=== PATIENT | male | born 1955 | race African-American/Black ===

== ENCOUNTER → 2016-10-10 | Outpatient (CLI) | payer OTHER, BC ==
[2016-03-26 14:31] VITALS: BP 125/79
[~2016-10-10] MED LIST: ABAC1TAB13 PO; HYDR-971 PO; PRED50TA PO; SULF1TAB24 PO; VALA1000 PO
--- NOTE | 2016-10-10 15:20 | RAD ---
Lumbar spine, 3 views, 10/10/2016: History: Back pain, disability determination The lumbar vertebral heights are well-maintained. There is a slight lumbar scoliosis. There are mild scattered marginal spurs. No fracture or dislocation is identified. Aortoiliac calcific plaquing is present. IMPRESSION: 1. Mild degenerative change. 2. No acute abnormality is detected.
== END | disposition home or self-care (01) ==
LOC: DXRAD 09:33
PROVIDERS: ATTEND Surgery
DX: Z02.71 Encounter for disability determination (principal)
CPT/HCPCS: 72100

== ENCOUNTER 2017-02-05 10:19 | Emergency (ER) | payer BC, OTHER ==
[~2017-02-05] VITALS: Ht 193 cm; Wt 88.5 kg
--- NOTE | 2017-02-05 10:55 | PHYS DOC ---
General Chief Complaint: SHOULDER INJURY Stated Complaint: SHOULDER PAIN Time Seen by MD: 10:30 Problems: History of Present Illness Allergies: Coded Allergies: No Known Drug Allergies (Unverified , 03/26/16) Past Medical History Medical History: other (Hodgkins Lymphoma (remission/chemo), HIV (follows ID [facility] ), BPH, TIA, COPD, HTN) Surgical History: other (LN bx, tonsil) Social History Smoker: cigarettes Alcohol: heavy (can of beer daily) Drugs: cocaine ("occasionally") Review of Systems Constitutional: denies chills, denies fever Respiratory: denies cough, denies shortness of breath Cardiovascular: denies chest pain, denies palpitations Gastrointestinal: denies nausea, denies vomiting Musculoskeletal: see HPI Psychiatric/Neurological: denies numbness, denies paresthesia, denies weakness Physical Exam General Appearance: no apparent distress, thin HEENT: PERRL/EOMI Neck: non-tender, supple Cardiovascular/Respiratory: normal peripheral pulses, no respiratory distress Shoulder: soft tissue tenderness (R shoulder posterolateral TTP limited ROM abduct/ext, no bony TTP/swell/ecchy) Neurologic/Tendon: normal sensation, normal motor functions, responds to pain Psychiatric: alert, oriented x 3 Skin: normal color, warm/dry Orders, Labs, Meds PATIENT: MAVIS FERNÁNDEZ ACCOUNT: [id number] : 1955 LOCATION: ER AGE: 61 SEX: M EXAM STATUS: REG ER ORD. PHYSICIAN: ISRAEL GLEZ DO REASON: R shoulder pain PROCEDURE: SHOULDER 2+V RIGHT Indication: Fall with continued right shoulder pain. Time of exam 11:01 AM Glenohumeral and acromial clavicular alignment are normal. There are coarse calcifications noted adjacent to the greater tuberosity consistent with calcific tendinitis of the rotator cuff. No fractures are seen. Impression: 1. Calcific tendinitis of the rotator cuff. DICTATED AND SIGNED BY: KIERA MANRIQUEZ MD DATE: 02/05/17 1111 CC: PCP,NO; ISRAEL GLEZ DO ~ I discussed substance abuse and need to discontinue the need to seek inpatient treatment. I discussed need for MRI and orthopedics evaluation. Discussed chronic pain and need to follow up with PCP. Patient expressed agreement and understanding with the treatment plan. Departure Time of Disposition: 11:26 Disposition: 01 HOME, SELF-CARE Diagnosis: Acute on Chronic Pain, Calcific Tendinitis R Rot C Condition: GOOD Patient Instructions: RICE - Routine Care for Injuries, [id number], Shoulder Exercises, Generic, SportsMed Additional Instructions: JESSICA, see handout. Discontinue substance abuse, seeking medical assistance if necessary. Wear the sling on the right shoulder as needed for symptom control. Prescription: Naprosyn, [place] 5 mg quantity 10 for breakthrough pain As discussed, chronic pain issues must be addressed with your PCP. Follow up with your doctor for further imaging/specialty referrals as needed, call today to schedule. Return to ED with new or changing symptoms. ISRAEL GLEZ DO Feb 05, 2017 10:55
--- NOTE | 2017-02-05 11:14 | RAD ---
Indication: Fall with continued right shoulder pain. Time of exam 11:01 AM Glenohumeral and acromial clavicular alignment are normal. There are coarse calcifications noted adjacent to the greater tuberosity consistent with calcific tendinitis of the rotator cuff. No fractures are seen. Impression: 1. Calcific tendinitis of the rotator cuff.
[2017-02-05] MEDS ORDERED: NAPR500T PO (11:25)
[2017-02-05] MEDS ORDERED: HYDR-971 PO (11:25)
[2017-02-05 11:41] VITALS: BP 124/81
== END 2017-02-05 11:45 | disposition home or self-care (01) ==
LOC: ER 10:19
DX: G89.29 Other chronic pain (principal); M75.31 Calcific tendinitis of right shoulder; F17.210 Nicotine dependence, cigarettes, uncomplicated; I10 Essential (primary) hypertension; J44.9 Chronic obstructive pulmonary disease, unspecified; N40.0 Benign prostatic hyperplasia without lower urinary tract symptoms; F10.20 Alcohol dependence, uncomplicated; Z85.71 Personal history of Hodgkin lymphoma; Z86.73 Personal history of transient ischemic attack (TIA), and cerebral infarction without residual deficits; Z21 Asymptomatic human immunodeficiency virus [HIV] infection status
CPT/HCPCS: 73030; 99284

== ENCOUNTER 2018-03-22 07:43 | Emergency (ER) | payer BC, OTHER ==
[~2018-03-22] VITALS: Ht 193 cm; Wt 88.5 kg
[~2018-03-22 07:43] MED LIST changes: +HYDR-3165 PO; -HYDR-971 PO; +NAPR-683 PO
[2018-03-22] MEDS ORDERED: NAPR-695 PO (08:30)
--- NOTE | 2018-03-22 08:30 | PHYS DOC ---
Past History Past Medical History: CAD, COPD, HIV, Hypertension, TIA, Other Past Surgical History: No Surgical History Smoking: Cigarettes Alcohol Use: None Drug Use: Cocaine, Marijuana Adult General Chief Complaint Chief Complaint: KNEE SWELLING HPI HPI 62-year-old male presents with report of right knee pain which started last night. 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 Reports last night suddenly felt like he couldn't wear bear weight. Reports this morning does have some increased swelling and stiffness which is worse with range of motion. Reports primarily to his medial aspect of knee. Denies known trauma. Denies redness. Denies fever or chills. Denies history of knee issues. Patient does report history of HIV. Reports has been compliant with his medications. Reports a negative viral load. Patient reports he is unsure of his CD4 count. Review of Systems Review of Systems Constitutional: Denies fever or chills [] Musculoskeletal: Denies back pain; reports right knee pain Integument: Denies rash or skin lesions [] Neurologic: Denies headache, focal weakness or sensory changes [] Complete systems were reviewed and found to be within normal limits, except as documented in this note. Current Medications Current Medications Current Medications Medications (Trade) Dose Ordered Sig/Shweta Start Time Stop Time Status Last Admin Dose Admin Dexamethasone (Decadron) 10 mg 1X ONCE 03/22/18 08:45 03/22/18 08:46 Ketorolac Tromethamine (Toradol 15mg Vial) 15 mg 1X ONCE 03/22/18 08:45 03/22/18 08:46 Allergies Allergies Allergies Coded Allergies Type Severity Reaction Last Updated Verified No Known Drug Allergies 03/26/16 No Physical Exam Physical Exam Constitutional: Well developed, well nourished, no acute distress, non-toxic appearance. [] HENT: Normocephalic, atraumatic Eyes: Conjunctiva normal, no discharge. [] Neck: Normal range of motion, no tenderness, supple Cardiovascular: Heart rate regular rhythm, no murmur [] Lungs & Thorax: Bilateral breath sounds clear to auscultation [] Skin: Warm, dry, no erythema Extremities: Right knee pain on ROM, Joint stable, anterior draw test stable, tenderness on palpation to medial tibial plateau, distal pulses and sensation intact Neurologic: Alert and oriented X 3, no focal deficits noted. [] Psychologic: Affect normal, judgement normal, mood normal. [] Current Patient Data Vital Signs Vital Signs Date Time Temp Pulse Resp B/P (MAP) Pulse Ox O2 Delivery O2 Flow Rate FiO2 03/22/18 07:43 98.6 98 18 97 Room Air EKG EKG [] Radiology/Procedures Radiology/Procedures PROCEDURE: KNEE RIGHT 3V KNEE RIGHT 3V History: RIGHT KNEE PAIN, NO INJURY Comparison: February 02, 2016 Findings: 3 views right knee are submitted. No acute fracture or dislocation is identified. Soft tissue calcification posterolateral to the distal femur is similar. Ossific excrescence of the lateral proximal tibia adjacent to the fibular head is unchanged in appearance. There is no significant joint effusion. Joint spaces are maintained. Impression: 1. No acute radiographic abnormality is identified. Electronically signed by: Preston Sommers MD (03/22/2018 8:48 AM) [facility] Course & Med Decision Making Course & Med Decision Making Pertinent Imaging studies reviewed. (See chart for details) Patient presents with report of right knee pain without history of known trauma. Patient does report going up and down the ladder several times yesterday. Patient reports he "is always working ". Joint appears stable. Symptomatic treatment provided with IM ketorolac and oral steroid. X-ray obtained without acute fracture or dislocation. Oscar wrap applied. Crutches provided. Patient educated on RICE. Patient stable for discharge with outpatient follow-up with PCP/orthopedics. Orthopedic referral provided. Discussed findings and plan with patient, who acknowledges understanding and agreement. Dragon Disclaimer Dragon Disclaimer This electronic medical record was generated, in whole or in part, using a voice recognition dictation system. Splinting Splinting : Location: Right knee Pre-Made Type: OSCAR bandage Pre-Proc Neuro Vasc Exam: normal Post-Proc Neuro Vasc Exam: normal, unchanged from pre-exam Departure Departure: Impression: Primary Impression: Knee pain, right Disposition: 01 HOME, SELF-CARE Condition: STABLE Referrals: PCPVERNON (PCP) BRYAN ERICKSON MD Patient Instructions: Crutch Use, Svei-dx-Feow, Knee Pain, Wqtl-wh-Zqyc Scripts Naproxen (NAPROXEN) 375 Mg Tablet 1 TAB PO TID PRN PRN for PAIN, #20 TAB 0 Refills Prov: VISHNU PETIT DO 03/22/18 Problem Qualifiers Primary Impression: Knee pain, right Chronicity: acute Qualified Codes: M25.561 - Pain in right knee VISHNU PETIT DO Mar 22, 2018 08:30
[2018-03-22 08:45] VITALS: BP 136/73
[2018-03-22] MEDS ORDERED: DEXAMETHASONE 4 MG TABLET PO ONE (08:45)
[2018-03-22] MEDS ORDERED: KETOROLAC 15 MG/ML VIAL. IM ONE (08:45)
--- NOTE | 2018-03-22 08:52 | RAD ---
KNEE RIGHT 3V History: RIGHT KNEE PAIN, NO INJURY Comparison: February 02, 2016 Findings: 3 views right knee are submitted. No acute fracture or dislocation is identified. Soft tissue calcification posterolateral to the distal femur is similar. Ossific excrescence of the lateral proximal tibia adjacent to the fibular head is unchanged in appearance. There is no significant joint effusion. Joint spaces are maintained. Impression: 1. No acute radiographic abnormality is identified. Electronically signed by: Preston Sommers MD (03/22/2018 8:48 AM) [facility]
== END 2018-03-22 08:55 | disposition home or self-care (01) ==
LOC: ER 07:43
DX: M25.561 Pain in right knee (principal); R22.41 Localized swelling, mass and lump, right lower limb; I25.10 Atherosclerotic heart disease of native coronary artery without angina pectoris; J44.9 Chronic obstructive pulmonary disease, unspecified; I10 Essential (primary) hypertension; F17.210 Nicotine dependence, cigarettes, uncomplicated
CPT/HCPCS: 73562; 96372; 99283; J1885; J8540

== ENCOUNTER 2018-04-29 05:52 | Emergency (ER) | payer OTHER ==
[~2018-04-29] VITALS: Ht 193 cm; Wt 87.0 kg
[2018-04-29 05:52] VITALS: BP 125/92
[~2018-04-29 05:52] MED LIST changes: +NAPR-695 PO
[2018-04-29] MEDS ORDERED: IV NORMAL SALINE 1,000ML 1,000 ML IV ONE (06:15)
--- NOTE | 2018-04-29 06:21 | PHYS DOC ---
Past History Past Medical History: CAD, COPD, HIV, Hypertension, TIA, Other Past Surgical History: No Surgical History Smoking: Cigarettes Alcohol Use: None Drug Use: Cocaine, Marijuana Adult General Chief Complaint Chief Complaint: VISION PROBLEM [facility] HPI 63-year-old male presents with headache and visual changes. The patient does move the last couple of days he has had intermittent headache which she describes as a sensitive scalp sensation on the top of his head. He is also had double vision intermittently. He is unsure what provokes these episodes but they last 10-15 minutes. He had one this morning so he decided to come to the ER. It has improved at this time, but the light headache remains. The patient states that when he closes his eyes he gets a sense of dizziness and a floating feeling. When he opens his eyes during one of these episodes he has the double vision. Patient denies double vision in the past. He denies history of headaches. He has had no changes in his medications. He is taking them as prescribed. He is on a prophylactic antibiotic and an HIV medication. He denies nausea, vomiting, shortness of breath, chest pain, fever, chills. Review of Systems Review of Systems Constitutional: Denies fever or chills [] Eyes: Intermittent double vision[] HENT: Denies nasal congestion or sore throat [] Respiratory: Denies cough or shortness of breath [] Cardiovascular: No additional information not addressed in HPI [] GI: Denies abdominal pain, nausea, vomiting, bloody stools or diarrhea [] : Denies dysuria or hematuria [] Musculoskeletal: Denies back pain or joint pain [] Integument: Denies rash or skin lesions [] Neurologic: Headache. Denies focal weakness or sensory changes [] Endocrine: Denies polyuria or polydipsia [] All other systems were reviewed and found to be within normal limits, except as documented in this note. Current Medications Current Medications Current Medications Medications (Trade) Dose Ordered Sig/Shweta Start Time Stop Time Status Last Admin Dose Admin Sodium Chloride 1,000 ml @ 1,000 mls/hr 1X ONCE 04/29/18 06:15 04/29/18 07:14 UNV Allergies Allergies Allergies Coded Allergies Type Severity Reaction Last Updated Verified No Known Drug Allergies 03/26/16 No Physical Exam Physical Exam Constitutional: Well developed, well nourished, no acute distress, non-toxic appearance. [] HENT: Normocephalic, atraumatic, bilateral external ears normal, oropharynx moist, no oral exudates, nose normal. [] Eyes: PERRLA, EOMI, conjunctiva normal, no discharge. Arcus senilis bilateral.[ ] Neck: Normal range of motion, no tenderness, supple, no stridor. [] Cardiovascular:Heart rate regular rhythm, no murmur [] Lungs & Thorax: Bilateral breath sounds clear to auscultation [] Abdomen: Bowel sounds normal, soft, no tenderness, no masses, no pulsatile masses. [] Skin: Warm, dry, no erythema, no rash. [] Back: No tenderness, no CVA tenderness. [] Extremities: No tenderness, no cyanosis, no clubbing, ROM intact, no edema. [] Neurologic: Alert and oriented X 3, normal motor function, normal sensory function, no focal deficits noted. [] Psychologic: Affect normal, judgement normal, mood normal. [] EKG EKG Sinus rhythm, rate 65, left axis, bundle branch block, no ST elevations or depressions.[] Radiology/Procedures Radiology/Procedures [] Impressions: CT Head W/O Contrast: History: Headache and visual change Comparison: none Axial images were obtained without contrast. The abraham and white matter appears normal and symmetrical for the patients age. There is no mass effect, extraaxial fluid collections or hydrocephalus. There is no gross bleed. There is no focal loss of abraham-white matter distinction to suggest acute ischemia, i.e. stroke. Impression: No acute findings. RS Compliance Statement: One or more of the following individualized dose reduction techniques were utilized for this examination: 1. Automated exposure control 2. Adjustment of the mA and/or kV according to patient size 3. Use of iterative reconstruction technique Electronically signed by: Bryan Jensen III, MD (04/29/2018 7:06 AM) [facility] DICTATED AND SIGNED BY: BRYAN JENSEN III, MD DATE: 04/29/18 07 CC: CHRISTINE AUSTIN DO; PCP,NO ~ Course & Med Decision Making Course & Med Decision Making Pertinent Labs and Imaging studies reviewed. (See chart for details) The patient's head CT is negative for acute findings. His creatinine is 1.6, review of his chart shows that this is similar to baseline. The patient also has an elevated hemoglobin and appears to be clinically mildly dehydrated. I will give him a liter of normal saline. I will also give him migraine cocktail of Reglan 10 mg IV, Benadryl 25 mg IV, and Toradol 30 mg IV. His urinalysis is unremarkable. His urine drug screen is positive for cocaine. This appears to be a likely source of the patient's complaints. The patient's EKG is negative for acute findings. His troponin is negative. After the headache medications, he is feeling a bit better at this time. I have advised him to not use cocaine anymore. He is stable for discharge at this time. [] Dragon Disclaimer Dragon Disclaimer This electronic medical record was generated, in whole or in part, using a voice recognition dictation system. Departure Departure: Impression: Primary Impression: Headache Additional Impressions: Double vision Cocaine abuse Disposition: 01 HOME, SELF-CARE Condition: STABLE Referrals: PCP,NO (PCP) Patient Instructions: Cocaine Abuse-Brief, Eye - Blurred Vision Problem Qualifiers Primary Impression: Headache Headache type: other vascular headache Qualified Codes: G44.1 - Vascular headache, not elsewhere classified CHRISTINE AUSTIN DO Apr 29, 2018 06:21
[2018-04-29 06:44] LABS: BASO % 1 % (0-3); EOS # 0.2 x10^3/uL (0.0-0.7); EOS % 4 % (0-3); HEMATOCRIT 53.7 % (39.0-53.0); LYMPH # 1.3 x10^3/uL (1.0-4.8); LYMPH % 28 % (24-48); MEAN CORPUSCULAR HEMOGLOBIN 30 pg (25-35); MEAN CORPUSCULAR HGB CONC 33 g/dL (31-37); MEAN CORPUSCULAR VOLUME 91 fL (79-100); MONO # 0.4 x10^3/uL (0.0-1.1); MONO % 9 % (0-9); NEUT # 2.7 x10^3uL (1.8-7.7); NEUT % 58 % (31-73); PLATELET COUNT 218 x10^3/uL (140-400); RED BLOOD COUNT 5.91 x10^6/uL (4.30-5.70); RED CELL DISTRIBUTION WIDTH 14.6 % (11.5-14.5); WHITE BLOOD COUNT 4.6 x10^3/uL (4.0-11.0)
[2018-04-29 06:44] LABS: BARBITURATES NEG (NEG); BENZODIAZEPINES NEG (NEG); CANNABINOIDS NEG (NEG); COCAINE POS (NEG); METHADONE NEG (NEG); OPIATES NEG (NEG); PHENCYCLIDINE NEG (NEG)
[2018-04-29 06:48] LABS: BILIRUBIN,URINE NEG (NEG); CLARITY,URINE CLEAR; COLOR,URINE AMBER; GLUCOSE,URINE NEG (NEG)
[2018-04-29 06:49] LABS: BACTERIA,URINE 0 /HPF (0-FEW); NITRITE,URINE NEG (NEG); SQUAMOUS EPITHELIAL CELL,UR OCC /LPF; UROBILINOGEN,URINE 0.2 mg/dL (0.2 mg/dL); WBC,URINE OCC /HPF (0-4)
[2018-04-29 06:51] LABS: AMPHETAMINE/METHAMPHETAMINE NEG (NEG)
[2018-04-29 06:57] LABS: INFLUENZA A PATIENT NEGATIVE (NEGATIVE); INFLUENZA B PATIENT NEGATIVE (NEGATIVE)
[2018-04-29 07:01] LABS: ALBUMIN 3.3 g/dL (3.4-5.0); ALBUMIN/GLOBULIN RATIO 0.7 (1.0-1.7); CREATININE 1.6 mg/dL (0.7-1.3); GFR 53.1; POTASSIUM 4.2 mmol/L (3.5-5.1); TOTAL BILIRUBIN 0.7 mg/dL (0.2-1.0); TOTAL PROTEIN 7.9 g/dL (6.4-8.2)
--- NOTE | 2018-04-29 07:10 | RAD ---
CT Head W/O Contrast: History: Headache and visual change Comparison: none Axial images were obtained without contrast. The abraham and white matter appears normal and symmetrical for the patients age. There is no mass effect, extraaxial fluid collections or hydrocephalus. There is no gross bleed. There is no focal loss of abraham-white matter distinction to suggest acute ischemia, i.e. stroke. Impression: No acute findings. RS Compliance Statement: One or more of the following individualized dose reduction techniques were utilized for this examination: 1. Automated exposure control 2. Adjustment of the mA and/or kV according to patient size 3. Use of iterative reconstruction technique Electronically signed by: Cam Jensen III, MD (04/29/2018 7:06 AM) [facility]
[2018-04-29] MEDS ORDERED: METOCLOPRAMIDE HCL 10 MG/2 ML VIAL. IV ONE (07:30)
[2018-04-29] MEDS ORDERED: diphenhydrAMINE 50 MG/ML VIAL IVP ONE (07:30)
[2018-04-29] MEDS ORDERED: KETOROLAC 30 MG/ML VIAL. IV ONE (07:30)
--- NOTE | 2018-04-29 11:44 | EKG ---
[address] [address] Test Date: 2018-04-29 Test Time: 07:39:12 Pat Name: MAVIS FERNÁNDEZ Department: Room: Gender: M Director Of Distribution: : 1955 Requested By: CHRISTINE AUSTIN Order Number: [id number] Reading MD: Yanick Vernon MD Measurements Intervals [place] Rate: 65 P: 70 RI: 176 QRS: -63 QRSD: 130 T: 52 QT: 436 QTc: 459 Interpretive Statements SINUS RHYTHM RBBB Electronically Signed On 05-02-2018 10:31:05 [employer]PLICATIONS COORDINATOR by Yanick Vernon MD
== END 2018-04-29 08:21 | disposition home or self-care (01) ==
LOC: ER 05:52
DX: G44.1 Vascular headache, not elsewhere classified (principal); H53.2 Diplopia; R42 Dizziness and giddiness; F14.10 Cocaine abuse, uncomplicated; F12.10 Cannabis abuse, uncomplicated; F17.210 Nicotine dependence, cigarettes, uncomplicated; I25.10 Atherosclerotic heart disease of native coronary artery without angina pectoris; J44.9 Chronic obstructive pulmonary disease, unspecified; I10 Essential (primary) hypertension; Z86.73 Personal history of transient ischemic attack (TIA), and cerebral infarction without residual deficits
CPT/HCPCS: 36415; 70450; 80053; 80307; 81001; 84484; 85025; 87804; 93005; 96361; 96374; 96375; 99284; J1200; J1885; J2765; J7030

== ENCOUNTER 2018-07-03 15:20 | Emergency (ER) | payer OTHER ==
[~2018-07-03] VITALS: Ht 193 cm; Wt 87.0 kg
[2018-07-03] MEDS ORDERED: ONDANSETRON ODT 4 MG TAB.RAPDIS ONE (15:28)
[2018-07-03] MEDS ORDERED: ONDANSETRON ODT 4 MG TAB.RAPDIS PO ONE (15:30)
[2018-07-03] MEDS ORDERED: IV NORMAL SALINE 1,000ML 1,000 ML IV SCH (15:33)
--- NOTE | 2018-07-03 15:39 | PHYS DOC ---
Past History Past Medical History: CAD, COPD, HIV, Hypertension, TIA, Other (YO MAX DO) Past Surgical History: No Surgical History (YO MAX DO) Smoking: Cigarettes Alcohol Use: None Drug Use: Cocaine, Marijuana (YO MAX DO) Adult General Chief Complaint Chief Complaint: ABDOMINAL PAIN HPI HPI Patient is a [63-year-old male presents with right upper quadrant abdominal pain , nausea, vomiting that started approximately an hour prior to arrival. No blood in the emesis. Patient has a remote history of similar pain and symptoms when a "stone was in a duct" however patient is uncertain as to where the stone was causing blockage. This happened 7-8 years ago. He denies any chest pain or palpitations. Nothing seems to make the symptoms better or worse. No recent changes in food.[] (YO MAX DO) Review of Systems Review of Systems Constitutional: Denies fever or chills [] Eyes: Denies change in visual acuity, redness, or eye pain [] HENT: Denies nasal congestion or sore throat [] Respiratory: Denies cough or shortness of breath [] Cardiovascular: No chest pain or palpitations[] GI: See history of present illness[] : Denies dysuria or hematuria [] Musculoskeletal: Denies back pain or joint pain [] Integument: Denies rash or skin lesions [] Neurologic: Denies headache, focal weakness or sensory changes [] Endocrine: Denies polyuria or polydipsia [] All other systems were reviewed and found to be within normal limits, except as documented in this note. (YO MAX DO) Current Medications Current Medications Current Medications Medications (Trade) Dose Ordered Sig/Shweta Start Time Stop Time Status Last Admin Dose Admin Ondansetron HCl (Zofran Odt) 4 mg 1X ONCE 07/03/18 15:30 07/03/18 15:31 DC (YO MAX DO) Allergies Allergies Allergies Coded Allergies Type Severity Reaction Last Updated Verified No Known Drug Allergies 03/26/16 No (YO MAX DO) Physical Exam Physical Exam Constitutional: Well developed, well nourished, moderate discomfort, non-toxic appearance. [] HENT: Normocephalic, atraumatic, bilateral external ears normal, oropharynx moist, no oral exudates, nose normal. [] Eyes: PERRLA, EOMI, conjunctiva normal, no discharge. [] Neck: Normal range of motion, no tenderness, supple, no stridor. [] Cardiovascular:Heart rate regular rhythm, no murmur [] Lungs & Thorax: Bilateral breath sounds clear to auscultation [] Abdomen: Bowel sounds normal, soft, tenderness in the right upper quadrant, no rebound, no guarding, no rigidity, no masses, no pulsatile masses. [] Skin: Warm, dry, no erythema, no rash. [] Back: No tenderness, no CVA tenderness. [] Extremities: No tenderness, no cyanosis, no clubbing, ROM intact, no edema. [] Neurologic: Alert and oriented X 3, normal motor function, normal sensory function, no focal deficits noted. [] Psychologic: Affect normal, judgement normal, mood normal. [] (YO MAX DO) EKG EKG [] (YO MAX DO) Radiology/Procedures Radiology/Procedures [] (YO MAX DO) Impressions: CT abdomen and pelvis with contrast: Reason for examination: Right upper quadrant abdominal pain with nausea and vomiting. Helical images were obtained through the abdomen pelvis with intravenous administration of 60 cc Omnipaque 300. Reconstruction was performed in sagittal and coronal planes. Exposure: One or more of the following individualized dose reduction techniques were utilized for this examination: 1. Automated exposure control 2. Adjustment of the mA and/or kV according to patient size 3. Use of iterative reconstruction technique. The lung bases are clear. The heart size is normal with no pericardial effusion. The liver is enlarged at 20 cm but appears to be homogeneous without a focal lesion. No focal abnormality seen at the spleen, adrenal glands or pancreas. The gallbladder appears distended measuring at least 9.6 cm in greatest dimension. No cholelithiasis is seen. The abdominal aorta and inferior vena cava show no acute abnormalities but there is arteriosclerotic vascular calcification in the aorta. There is oral contrast within the stomach and the stomach does not appear abnormally distended or thickened. The small intestinal tract contains only minimal contrast proximally with no abnormal dilatation or wall thickening evident proximally. There is however some mild dilatation of the small intestine distally with no wall thickening and no site of obstruction evident.. No abnormality is seen at the colon. The appendix is not identified. The kidneys show no renal masses, renal calculi, hydronephrosis or evidence of obstructive uropathy. No abnormality seen at the bladder, prostate gland or seminal vesicles. No abnormal fluid collections or free air are present. No acute bony abnormalities are seen. IMPRESSION: Hepatomegaly without a focal lesion. Distended gallbladder measuring at least 9.6 cm in size without cholelithiasis. Mild dilatation of the distal small intestinal tract but no focal obstruction evident. Electronically signed by: Becka Rendon MD (07/03/2018 6:07 PM) [facility] (CLAUDIA ROSEN Jr., DO) Course & Med Decision Making Course & Med Decision Making Pertinent Labs and Imaging studies reviewed. (See chart for details) ED course: Patient arrived, was placed in bed, and tolerated exam well. He had minimal relief with Zofran for his nausea and vomiting, slightly improved relief with the Reglan but was still continuing to have nausea and vomiting. Obtained significant improvement with Compazine. He was transported to and from [place] with any complications. At the time of this dictation laboratory and imaging findings are still in process. Patient care was endorsed to the oncoming physician at 1800.[] (YO MAX DO) Course & Med Decision Making Patient's care was accepted at 6:00 PM. At that time, blood work and CT were pending. Patient's workup has returned with no acute findings. Findings have been reviewed with patient and patient states that at this time his symptoms have significantly improved. Patient will be discharged home with medication for pain and nausea. (CLAUDIA ROSEN Jr., DO) Dragon Disclaimer Dragon Disclaimer This electronic medical record was generated, in whole or in part, using a voice recognition dictation system. (YO MAX DO) Departure Departure: Impression: Primary Impression: Epigastric abdominal pain Additional Impression: Nausea and vomiting Disposition: 01 HOME, SELF-CARE Condition: STABLE Referrals: PCP,NO (PCP) Patient Instructions: Abdominal Pain, Nausea and Vomiting Scripts Ondansetron Hcl (ZOFRAN) 4 Mg Tablet 4 MG PO Q6HRS PRN for NAUSEA, #12 TAB Prov: CLAUDIA ROSEN Jr. DO 07/03/18 Tramadol Hcl (TRAMADOL HCL) 50 Mg Tablet 50 MG PO PRN Q6HRS PRN for PAIN, #12 TAB Prov: CLAUDIA ROSEN Jr. DO 07/03/18 Problem Qualifiers Additional Impression: Nausea and vomiting Vomiting type: unspecified Vomiting Intractability: non-intractable Qualified Codes: R11.2 - Nausea with vomiting, unspecified YO MAX DO Jul 03, 2018 15:39 CLAUDIA ROSEN Jr. DO Jul 03, 2018 18:16
[2018-07-03] MEDS ORDERED: HYOSCYAMINE 0.125 MG TAB.RAPDIS PO ONE (15:45)
[2018-07-03] MEDS ORDERED: METOCLOPRAMIDE HCL 10 MG/2 ML VIAL. IM ONE (15:45)
[2018-07-03] MEDS ORDERED: IOHEXOL 240 MG/ML 50ML VIAL. PO ONE (15:45)
[2018-07-03] MEDS ORDERED: IOHEXOL 300 MG/ML 75 ML VIAL. IV ONE (15:45)
[2018-07-03] MEDS ORDERED: CONTRAST GIVEN MC PRN (15:45)
[2018-07-03 16:03] LABS: BASO % 1 % (0-3); EOS # 0.2 x10^3/uL (0.0-0.7); EOS % 6 % (0-3); HEMATOCRIT 51.5 % (39.0-53.0); HEMOGLOBIN 17.3 g/dL (13.0-17.5); LYMPH # 2.2 x10^3/uL (1.0-4.8); LYMPH % 55 % (24-48); MEAN CORPUSCULAR HEMOGLOBIN 30 pg (25-35); MEAN CORPUSCULAR HGB CONC 34 g/dL (31-37); MEAN CORPUSCULAR VOLUME 91 fL (79-100); MONO # 0.4 x10^3/uL (0.0-1.1); MONO % 9 % (0-9); NEUT # 1.2 x10^3uL (1.8-7.7); NEUT % 29 % (31-73); PLATELET COUNT 199 x10^3/uL (140-400); RED BLOOD COUNT 5.68 x10^6/uL (4.30-5.70); RED CELL DISTRIBUTION WIDTH 14.6 % (11.5-14.5)
[2018-07-03 16:09] LABS: ALBUMIN 3.7 g/dL (3.4-5.0); ALBUMIN/GLOBULIN RATIO 0.8 (1.0-1.7); CALCIUM 9.5 mg/dL (8.5-10.1); CREATININE 1.5 mg/dL (0.7-1.3); GFR 57.2; POTASSIUM 4.1 mmol/L (3.5-5.1); TOTAL BILIRUBIN 0.5 mg/dL (0.2-1.0); TOTAL PROTEIN 8.3 g/dL (6.4-8.2)
[2018-07-03] MEDS ORDERED: PROCHLORPERAZINE 10 MG/2 ML VIAL. IV ONE (16:45)
--- NOTE | 2018-07-03 18:09 | RAD ---
CT abdomen and pelvis with contrast: Reason for examination: Right upper quadrant abdominal pain with nausea and vomiting. Helical images were obtained through the abdomen pelvis with intravenous administration of 60 cc Omnipaque 300. Reconstruction was performed in sagittal and coronal planes. Exposure: One or more of the following individualized dose reduction techniques were utilized for this examination: 1. Automated exposure control 2. Adjustment of the mA and/or kV according to patient size 3. Use of iterative reconstruction technique. The lung bases are clear. The heart size is normal with no pericardial effusion. The liver is enlarged at 20 cm but appears to be homogeneous without a focal lesion. No focal abnormality seen at the spleen, adrenal glands or pancreas. The gallbladder appears distended measuring at least 9.6 cm in greatest dimension. No cholelithiasis is seen. The abdominal aorta and inferior vena cava show no acute abnormalities but there is arteriosclerotic vascular calcification in the aorta. There is oral contrast within the stomach and the stomach does not appear abnormally distended or thickened. The small intestinal tract contains only minimal contrast proximally with no abnormal dilatation or wall thickening evident proximally. There is however some mild dilatation of the small intestine distally with no wall thickening and no site of obstruction evident.. No abnormality is seen at the colon. The appendix is not identified. The kidneys show no renal masses, renal calculi, hydronephrosis or evidence of obstructive uropathy. No abnormality seen at the bladder, prostate gland or seminal vesicles. No abnormal fluid collections or free air are present. No acute bony abnormalities are seen. IMPRESSION: Hepatomegaly without a focal lesion. Distended gallbladder measuring at least 9.6 cm in size without cholelithiasis. Mild dilatation of the distal small intestinal tract but no focal obstruction evident. Electronically signed by: Becka Rendon MD (07/03/2018 6:07 PM) [facility]
--- NOTE | 2018-07-03 18:27 | EKG ---
[address] [address] Test Date: 2018-07-03 Test Time: 16:20:32 Pat Name: MAVIS FERNÁNDEZ Department: Room: Gender: M [employer]: KAIT : 1955 Requested By: YO MAX Order Number: [id number] Reading MD: Nikita Somers Measurements Intervals [place] Rate: 49 P: 63 AL: 174 QRS: -51 QRSD: 134 T: 60 QT: 490 QTc: 445 Interpretive Statements SINUS BRADYCARDIA ATRIAL PREMATURE COMPLEX(ES) LEFT ANTERIOR FASCICULAR BLOCK RIGHT BUNDLE BRANCH BLOCK BIFASCICULAR BLOCK ABNORMAL ECG Electronically Signed On 07-08-2018 13:28:50 CDT by Nikita Somers
[2018-07-03 18:30] VITALS: BP 128/71
[2018-07-03 19:31] LABS: BACTERIA,URINE 0 /HPF (0-FEW); BILIRUBIN,URINE NEG (NEG); CLARITY,URINE CLEAR; COLOR,URINE YELLOW; GLUCOSE,URINE NEG (NEG); NITRITE,URINE NEG (NEG); RBC,URINE 0 /HPF (0-2); SQUAMOUS EPITHELIAL CELL,UR FEW /LPF; UROBILINOGEN,URINE 0.2 mg/dL (0.2 mg/dL); WBC,URINE 0 /HPF (0-4)
[2018-07-03 19:32] LABS: BARBITURATES NEG (NEG); BENZODIAZEPINES NEG (NEG); CANNABINOIDS NEG (NEG); COCAINE POS (NEG); METHADONE NEG (NEG); OPIATES NEG (NEG); PHENCYCLIDINE NEG (NEG)
[2018-07-03 19:33] LABS: AMPHETAMINE/METHAMPHETAMINE NEG (NEG)
[2018-07-03] MEDS ORDERED: TRAM50TA PO (19:43)
[2018-07-03] MEDS ORDERED: ONDA4TAB7 PO (19:43)
== END 2018-07-03 20:10 | disposition home or self-care (01) ==
LOC: ER 15:20
DX: R10.13 Epigastric pain (principal); R10.11 Right upper quadrant pain; R11.2 Nausea with vomiting, unspecified; R16.0 Hepatomegaly, not elsewhere classified; I25.10 Atherosclerotic heart disease of native coronary artery without angina pectoris; J44.9 Chronic obstructive pulmonary disease, unspecified; I10 Essential (primary) hypertension; F17.210 Nicotine dependence, cigarettes, uncomplicated; F14.10 Cocaine abuse, uncomplicated; F12.10 Cannabis abuse, uncomplicated; Z86.73 Personal history of transient ischemic attack (TIA), and cerebral infarction without residual deficits
CPT/HCPCS: 36415; 74177; 80053; 80307; 81001; 83690; 84484; 85025; 85610; 93005; 96361; 96372; 96374; 99285; J0780; J2765; Q0162; Q9966; Q9967; J7030

== ENCOUNTER 2019-04-05 20:53 | Emergency (ER) | payer OTHER ==
[~2019-04-05] VITALS: Ht 193 cm; Wt 83.1 kg
[~2019-04-05 20:53] MED LIST changes: +ONDA4TAB7 PO; +TRAM50TA PO
--- NOTE | 2019-04-05 21:20 | PHYS DOC ---
Past History Past Medical History: CAD, COPD, HIV, Hypertension, TIA, Other Past Surgical History: No Surgical History Smoking: Cigarettes Alcohol Use: None Drug Use: Cocaine, Marijuana Adult General Chief Complaint Chief Complaint: FEVER HPI HPI 63-year-old male presents with cough and fever. He has had several days of increasing cough. He feels like his had a fever at home. He does not have a fever in the ED. His cough is sometimes productive. The patient stopped smoking 6 days ago. He denies nausea, vomiting, or diarrhea. He has no other complaints this time. Review of Systems Review of Systems Constitutional: Fever[] Eyes: Denies change in visual acuity, redness, or eye pain [] HENT: nasal congestion [] Respiratory: Cough with shortness of breath [] Cardiovascular: No additional information not addressed in HPI [] GI: Denies abdominal pain, nausea, vomiting, bloody stools or diarrhea [] : Denies dysuria or hematuria [] Musculoskeletal: Denies back pain or joint pain [] Integument: Denies rash or skin lesions [] Neurologic: Denies headache, focal weakness or sensory changes [] Endocrine: Denies polyuria or polydipsia [] All other systems were reviewed and found to be within normal limits, except as documented in this note. Allergies Allergies Allergies Coded Allergies Type Severity Reaction Last Updated Verified No Known Drug Allergies 03/26/16 No Physical Exam Physical Exam Constitutional: Well developed, well nourished, no acute distress, non-toxic appearance. [] HENT: Normocephalic, atraumatic, bilateral external ears normal, oropharynx moist, no oral exudates, nose normal. [] Eyes: PERRLA, EOMI, conjunctiva normal, no discharge. [] Neck: Normal range of motion, no tenderness, supple, no stridor. [] Cardiovascular:Heart rate regular rhythm, no murmur [] Lungs & Thorax: Bilateral breath sounds diminished throughout[] Abdomen: Bowel sounds normal, soft, no tenderness, no masses, no pulsatile masses. [] Skin: Warm, dry, no erythema, no rash. [] Back: No tenderness, no CVA tenderness. [] Extremities: No tenderness, no cyanosis, no clubbing, ROM intact, no edema. [] Neurologic: Alert and oriented X 3, normal motor function, normal sensory function, no focal deficits noted. [] Psychologic: Affect normal, judgement normal, mood normal. [] EKG EKG [] Radiology/Procedures Radiology/Procedures [] Course & Med Decision Making Course & Med Decision Making Pertinent Labs and Imaging studies reviewed. (See chart for details) Patient's labs are remarkable for an elevated creatinine of 1.6. Review of his chart shows this appears to be his baseline. The patient is positive for influenza B. He has had this cough for 5 days so he is outside the window for Tamiflu. I have advised supportive care including rest, continuing to not smoke and staying well-hydrated. His vital signs are within normal limits. He is stable for discharge at this time. [] Dragon Disclaimer Dragon Disclaimer This electronic medical record was generated, in whole or in part, using a voice recognition dictation system. Departure Departure: Impression: Primary Impression: Influenza B Disposition: 01 HOME, SELF-CARE Condition: STABLE Referrals: PCP,NO (PCP) Patient Instructions: Influenza, Adult, [id number] Scripts Benzonatate (TESSALON PERLE) 100 Mg Capsule 1 CAP PO TID PRN for COUGH, #30 CAP Prov: CHRISTINE AUSTIN DO 04/05/19 CHRISTINE AUSTIN DO Apr 05, 2019 21:20
[2019-04-05] MEDS ORDERED: IV NORMAL SALINE 1,000ML 1,000 ML IV ONE (21:30)
[2019-04-05] MEDS ORDERED: IPRATRPIUM/ALBUTEROL 0.5/2.5MG 3 ML NEBU. NEB ONE (21:30)
[2019-04-05 21:38] LABS: BASO % 1 % (0-3); EOS % 0 % (0-3); HEMATOCRIT 51.8 % (39.0-53.0); HEMOGLOBIN 17.6 g/dL (13.0-17.5); LYMPH # 0.9 x10^3/uL (1.0-4.8); LYMPH % 16 % (24-48); MEAN CORPUSCULAR HEMOGLOBIN 31 pg (25-35); MEAN CORPUSCULAR HGB CONC 34 g/dL (31-37); MEAN CORPUSCULAR VOLUME 91 fL (79-100); MONO # 0.4 x10^3/uL (0.0-1.1); MONO % 7 % (0-9); NEUT # 4.4 x10^3uL (1.8-7.7); NEUT % 77 % (31-73); PLATELET COUNT 142 x10^3/uL (140-400); RED BLOOD COUNT 5.71 x10^6/uL (4.30-5.70); RED CELL DISTRIBUTION WIDTH 13.3 % (11.5-14.5); WHITE BLOOD COUNT 5.7 x10^3/uL (4.0-11.0)
[2019-04-05 21:45] LABS: CALCIUM 8.3 mg/dL (8.5-10.1); CREATININE 1.6 mg/dL (0.7-1.3); GFR 53.1; POTASSIUM 3.9 mmol/L (3.5-5.1)
[2019-04-05 21:50] LABS: ALBUMIN 3.4 g/dL (3.4-5.0); ALBUMIN/GLOBULIN RATIO 0.7 (1.0-1.7); TOTAL BILIRUBIN 0.6 mg/dL (0.2-1.0); TOTAL PROTEIN 8.4 g/dL (6.4-8.2)
[2019-04-05 21:58] LABS: INFLUENZA A PATIENT NEGATIVE (NEGATIVE); INFLUENZA B PATIENT POSITIVE (NEGATIVE)
--- NOTE | 2019-04-05 21:59 | RAD ---
Exam: Chest 2 views INDICATION: Cough TECHNIQUE: Frontal and lateral views the chest Comparisons: None FINDINGS: The cardiomediastinal silhouette and pulmonary vessels are within normal limits. The lung and pleural spaces are clear. IMPRESSION: No acute cardiopulmonary process. Electronically signed by: Sasha Monroy MD (04/05/2019 9:56 PM) [facility]
[2019-04-05] MEDS ORDERED: BENZ100C PO (22:05)
[2019-04-05 22:18] VITALS: BP 118/76
[2019-04-05] MEDS ORDERED: BENZONATATE 100 MG CAPSULE. PO ONE (22:30)
== END 2019-04-05 23:00 | disposition home or self-care (01) ==
LOC: ER 20:53
DX: J10.1 Influenza due to other identified influenza virus with other respiratory manifestations (principal); I25.10 Atherosclerotic heart disease of native coronary artery without angina pectoris; J44.9 Chronic obstructive pulmonary disease, unspecified; I10 Essential (primary) hypertension; F17.210 Nicotine dependence, cigarettes, uncomplicated; Z86.73 Personal history of transient ischemic attack (TIA), and cerebral infarction without residual deficits
CPT/HCPCS: 36415; 71046; 80053; 85025; 87804; 94640; 99285; J7620; J7030